=== PATIENT | female | born 1975 | race Caucasian/White ===

== ENCOUNTER → 2016-11-25 | Outpatient (CLI) | payer OTHER ==
[~2016-11-25] MED LIST: LEVO-217 PO; PRENTAB26 PO
[2016-11-25 12:57] LABS: THYROID STIMULATING HORMONE 2.33 uIu/ml (0.300-4.500)
== END | disposition home or self-care (01) ==
LOC: C.LABPVFM 10:10
PROVIDERS: ATTEND Internal Medicine Endocrinology, Diabetes & Metabolism
DX: E03.9 Hypothyroidism, unspecified (principal)

== ENCOUNTER → 2017-03-24 | Outpatient (CLI) | payer OTHER ==
[2017-03-24 12:38] LABS: BASO % 0.6 %; BASO ABS # 0.03 K/uL (0-0.2); COMPLETE YES; HEMATOCRIT 38.5 % (37-47); IG% 0.4 %; LYMPH % 27.3 %; MEAN CELL VOLUME 92.1 fL (80-100); MEAN CORPUSCULAR HEMOGLOBIN 30.1 pg (25-34); MEAN CORPUSCULAR HGB CONC 32.7 g/dl (32-36); MEAN PLATELET VOLUME 11.6 fL (7.4-10.4); MONO % 7.2 %; NEUT % 63.5 %; PLATELET COUNT 248 K/uL (130-400); RED BLOOD COUNT 4.18 M/uL (4.2-5.4); WHITE BLOOD COUNT 5.13 K/uL (4.8-10.8)
[2017-03-24 13:01] LABS: ALT/SGPT 21 U/L (12-78); AST/SGOT 11 U/L (15-37); BLOOD UREA NITROGEN 15 mg/dl (7-18); BUN/CREATININE RATIO 20.9 (10-20); CALCIUM 8.5 mg/dl (8.5-10.1); CARBON DIOXIDE 25 mmol/L (21-32); CHLORIDE 112 mmol/L (98-107); CREATININE 0.73 mg/dl (0.60-1.20); GLUCOSE 86 mg/dl (70-99); POTASSIUM 4.6 mmol/L (3.5-5.1); SODIUM 142 mmol/L (136-145)
[2017-03-24 13:12] LABS: ALKALINE PHOSPHATASE 63 U/L (45-117); THYROID STIMULATING HORMONE 0.652 uIu/ml (0.300-4.500)
== END | disposition home or self-care (01) ==
LOC: C.LABPVFM 09:16
PROVIDERS: ATTEND Family Medicine
DX: E03.9 Hypothyroidism, unspecified (principal); Z76.89 Persons encountering health services in other specified circumstances

== ENCOUNTER → 2017-04-04 | Outpatient (CLI) | payer OTHER ==
--- NOTE | 2017-04-05 08:48 | PULMONARY FUNCTION TEST ---
CLINICAL DATA: A 41-year-old female with a height of 63 inches tall and a weight of [address] 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 Spirometry pre- and post-bronchodilator, lung volumes, and DLCO were performed. FINDINGS: Pre-bronchodilator spirometry demonstrates mild obstructive airways disease. FVC was 97% of predicted. FEV1 was 69% of predicted. [id number] was 46% of predicted. There was slight improvement after inhaled bronchodilator. FVC improved 13% to 78% predicted. [id number] improved 20% to 55% of predicted. Lung volumes were normal. DLCO was normal at 91% of predicted. IMPRESSION: Mild obstructive airways disease with slight improvement after inhaled bronchodilator especially on flow at lung volumes. Normal lung volumes. Normal diffusion capacity. MTDD
== END | disposition home or self-care (01) ==
LOC: C.RC 09:01
PROVIDERS: ATTEND Family Medicine
DX: G71.11 Myotonic muscular dystrophy (principal)